=== PATIENT | female | born 1995 | race Caucasian/White ===

== ENCOUNTER 2019-02-21 18:07 | Emergency (ER) | payer MEDICAID ==
[~2019-02-21] VITALS: Ht 162.6 cm; Wt 65.8 kg
[2019-02-21 18:15] VITALS: Ht 162.6 cm; Wt 65.8 kg
[2019-02-21 19:37] LABS: BASOPHIL % 0.2 % (0-2); PLATELET COUNT 237 x10^3mcL (130-400); RED CELL DISTRIBUTION WIDTH 13.7 % (11.5-14.5)
[2019-02-21 19:50] LABS: CALCIUM 9.3 mg/dL (8.5-10.1); CARBON DIOXIDE 24.8 mmol/L (21-32); CHLORIDE SERUM 102 mmol/L (98-107); CREATININE SERUM 0.6 mg/dL (0.6-1.0); GFR1 > 60 mL/min; GLUCOSE SERUM 95 mg/dL (74-106); POTASSIUM SERUM 3.7 mmol/L (3.5-5.1); SODIUM SERUM 138 mmol/L (136-145)
[2019-02-21 19:54] LABS: ALBUMIN 3.8 g/dL (3.4-5.0); ALKALINE PHOSPHATASE 74 U/L (46-116); ALT/SGPT 25 U/L (14-59); AST/SGOT 14 U/L (15-37); BILIRUBIN TOTAL 0.2 mg/dL (0.20-1.00); LIPASE 122 IU/L (73-393)
[2019-02-21 20:00] LABS: TOTAL PROTEIN, SERUM 8.3 g/dL (6.4-8.2)
[2019-02-21 23:16] LABS: microscopic required? YES; urine erythrocyte NEGATIVE (NEGATIVE)
[2019-02-21 23:38] VITALS: BP 119/61
== END 2019-02-21 23:38 | disposition home or self-care (01) ==
LOC: ED 18:07
PROVIDERS: Emergency Medicine
DX: O23.41 Unspecified infection of urinary tract in pregnancy, first trimester (principal); Z3A.13 13 weeks gestation of pregnancy
CPT/HCPCS: 36415; Q0092